=== PATIENT | female | born 1990 | race Caucasian/White ===

== ENCOUNTER 2016-09-26 06:01 | Inpatient (IN) | payer OTHER ==
[~2016-09-26] VITALS: Ht 160 cm; Wt 58.0 kg
[2016-09-26] VITALS (11 sets, daily range): BP systolic 122–147; BP diastolic 59–88
[2016-09-26] MEDS ORDERED: PRENTAB9 PO (07:37)
[2016-09-26] MEDS ORDERED: PENICILLIN G POTASSIUM IV 5 MU in D5W MINI-BAG PLUS 100 ML IV ONE (08:00)
[2016-09-26] MEDS ORDERED: PENICILLIN G POTASSIUM 5 MU VIAL As Ordered ONE (08:02)
[2016-09-26 08:04] LABS: MEAN CORPUSCULAR HEMOGLOBIN 30.8 pg (27.0-33.0); MEAN CORPUSCULAR HGB CONC 33.2 g/dl (32.0-36.5); MEAN CORPUSCULAR VOLUME 92.9 fl (80.0-96.0); RED CELL DISTRIBUTION WIDTH 13.1 % (11.5-14.5); WHITE BLOOD COUNT 15.6 K/mm3 (4.0-10.0)
[2016-09-26] MEDS ORDERED: OXYTOCIN 30 UNITS IN 0.9% NaCl 500ML IV BAG (J2590) As Ordered ONE (08:05)
[2016-09-26] MEDS ORDERED: LR 1,000 ML IV SCH (08:34)
[2016-09-26] MEDS ORDERED: OXYTOCIN DRIP 30 UNITS in APPROPRIATE DILUENT 1 EA IV SCH (08:38)
[2016-09-26] MEDS ORDERED: RHOGAM 300 MCG (1500 IU) INJ (J2790) IM SCH (08:45)
[2016-09-26] MEDS ORDERED: METOCLOPRAMIDE INJ 10MG/2ML VIAL (J2765) IV PRN (08:45)
[2016-09-26] MEDS ORDERED: IBUPROFEN 800 MG TAB PO PRN (08:45)
[2016-09-26] MEDS ORDERED: MEASLES,MUMPS,RUBELLA VACCINE INJ (MMR-II) (90707) SC SCH (08:45)
[2016-09-26] MEDS ORDERED: ACETAMINOPHEN TAB 650MG DOSE (2X325MG) PO PRN (08:45)
[2016-09-26] MEDS ORDERED: DIBUCAINE 1% OINTMENT 30GM TOP PRN (08:45)
[2016-09-26] MEDS: DOCUSATE SODIUM 100 MG CAP PO SCH ×2 (10:30→20:07)
[2016-09-26] MEDS: PRENATAL VITAMIN TAB PO SCH (10:31)
--- NOTE | 2016-09-26 10:37 | HPEPDOC ---
Obstetrical History & Physical General Date of Admission Sep 26, 2016 at 07:28 History of Present Illness Late entry, put in after delivery 25 at 38+0 with painful reg ctx's. Pos FM and slight VB. Large LOF right before I entered the room to meet the pt. Problem list: UTI/Kidney in , was on Keflex prophylaxis, prone to freq UTI's GCT 140, nl GTT EIF, too late for quad screen, declined MFM consultation Transfered to us at 21 wks Chief Complaint: Contractions, term, LOF, term Information Provided By: Patient, Other (outpt chart) Care Care: Good Care Dating Final EDC: Oct 10, 2016 Final EDC by: 1st trimester (US) Past Medical History Past Obstetrical History : Past Obstetrical History: [employer] MA[employer]GER [employer]ION History: No pertinent history (neg pap ) Past Medical History Medical History freq UTI's Surgical History: Other (none) Family History Significant Family History: No pertinent family hx Social History Marital Status: Family situation: Spouse/partner home Psychosocial History: No pertinent psych hx * Smoker: non-smoker Alcohol: denies Drugs: denies Abuse Violence Screening Have you been hit/kicked/slapp: No Have you been sexually assault: No Imunizations Tdap status: current Influenza Status: current Allergies Coded Allergies: No Known Allergies (Unverified , 09/26/16) Medications Scheduled Multivitamins/ ( 27-0.8 mg) 1 Tab Tab 1 TAB PO DAILY Physical Examination Physical Examination GENERAL: Alert and oriented times three. BREAST: . ABDOMEN: Gravid and non-tender to touch. FETUS: Is vertex (VTX) by sterile vaginal examination (SVE), fetus is vertex ( VTX) by Nasir. HEART RATE: Regular rate and rhythm. LUNGS: Clear to auscultation (CTA). EXTREMITIES: No edema. No clonus. Deep tendon reflexes (DTRs) + . Vital Signs/I&O Vital Signs Date Time Temp Pulse Resp B/P Pulse Ox O2 Delivery O2 Flow Rate FiO2 09/26/16 09:15 75 128/59 09/26/16 09:13 99.0 18 Laboratory Data 24H LABS Laboratory Tests 2 09/26/16 07:36: Serology Scanned Report Hepatitis B Testing 09/26/16 07:49: 09/26/16 10:15: Bedside Glucose (Misc Panel) 56L CBC/BMP Laboratory Tests 09/26/16 07:49 Red Blood Count 3.69 L, Mean Corpuscular Volume 92.9, Mean Corpuscular Hemoglobin 30.8, Mean Corpuscular Hemoglobin Concent 33.2, Red Cell Distribution Width 13.1 FSBS Laboratory Tests Test 09/26/16 10:15 Range/Units Bedside Glucose (Misc Panel) 56 70-105 MG/DL Urine Culture: No Growth ( when arrived at [facility]) Pertinent Laboratoy Data Blood Type: O+ RBC Antibody Screen: Negative HIV: Negative Hepatitis B: Negative Hepatitis C: Unknown Rapid Plasma Reagin: Nonreactive Rubella: Immune Varicella: Immune Chlamydia/Gonorrhea: Negative Group B Streptococcus: Negative Quad Screen Test: Declined Cystic Fibrosis: Declined Glucose Tolerance Test: 140 Anatomy Ultrasound Ultrasound Date: Jun 16, 2016 Placenta Location: Posterior Normal Anatomy: Yes (isolated EIF noted) Placenta Previa: No Estimated Weight (grams): 2800 Vaginal Examination Dilation: 10 cm Effacement: 80+% Station: +1, +2 Cervical Consistency: Soft Cervical Position: Anterior Presentation: Cephalic presentation Position: Vertex (occiput) Assessment Variability: Moderate Accelerations: Positive Decelerations: None Tocometer Contractions: Yes Frequency: regular Assessment/Plan Assessment 25 y/o checked by the RN prior to my check and found to be <4 cm dilated, my expectation was to discharge her however beforeI came into the room she SROM' d and my exam after HPI was C/C/+2/FORREST. She pushed very well and had an uncomplicatyed delivery, see del summary. Plan Admit and orient. Enterprise Engineer and consent. Group B Streptococcus neg Labs and intravenous (IV) per unit protocol. THUY BURNETTE MD Sep 26, 2016 10:37
--- NOTE | 2016-09-26 10:42 | DNPDOC ---
Delivery Note Delivery Note DATE OF DELIVERY: Sep 26, 2016 at 07:28 PREDELIVERY DIAGNOSIS: 38 0/7 weeks' gestation and labor. POST DELIVERY DIAGNOSIS: Delivered. PROCEDURE: Spontaneous vaginal delivery DIRECTOR ATHLETIC: Dr. Burnette ANESTHESIA: none ESTIMATED BLOOD LOSS: 200 FINDINGS: apgars 9/9, wt 2470 gm, 5 lb 7 oz DELIVERY SUMMARY: Pushed surprisingly well and del'd much quicker than anyone anticipated. No delay of the vtx, bilat compound hands but no delay of the ant/ post shoulder. Infant to mother's abd. Cord C/C by FOB. Cord blood. Plac intact with minimal traction and massgae. Pit running, fundus firm. Right labial lac and 1st degr per lac repaired in standard fashion with 3-0 vicryl, good cosmesis/hemostasis. THUY BURNETTE MD Sep 26, 2016 10:42
[2016-09-26] MEDS ORDERED: LIDOCAINE 1% MDV INJ 50 ML VIAL SC ONE (11:00)
[2016-09-27 06:02] VITALS: BP 130/62
--- NOTE | 2016-09-27 07:01 | IPNPDOC ---
Text Note Date of Service The patient was seen on 09/27/16. NOTE prog note on 12FEB at 805 States feeling well, no complaints. Bonding, nursing well, VB slowing, no signif pain, eating, ambulatory. VSS Ut at U-2, firm LE no CCE a/p: Doing well, d/c likely tomorrow Sessions MD BROWNE,Ty, I+O VSTy I+O Laboratory Tests 09/26/16 07:49 Red Blood Count 3.69 L, Mean Corpuscular Volume 92.9, Mean Corpuscular Hemoglobin 30.8, Mean Corpuscular Hemoglobin Concent 33.2, Red Cell Distribution Width 13.1 Vital Signs Date Time Temp Pulse Resp B/P Pulse Ox O2 Delivery O2 Flow Rate FiO2 09/27/16 06:02 98.2 87 16 130/62 I&O- Last 24 Hours up to 6 AM 09/27/16 06:00 Output Total 900 ml Balance -900 ml SESSIONS,THUY Mayer MD Sep 27, 2016 07:01
[2016-09-27] MEDS: PRENATAL VITAMIN TAB PO SCH (09:15)
[2016-09-27] MEDS: DOCUSATE SODIUM 100 MG CAP PO SCH ×2 (09:15→20:00)
[2016-09-27 18:18] VITALS: BP 129/82
[2016-09-28 06:17] VITALS: BP 121/59
[2016-09-28] MEDS: PRENATAL VITAMIN TAB PO SCH (08:03)
[2016-09-28] MEDS: DOCUSATE SODIUM 100 MG CAP PO SCH (08:03)
[2016-09-28] MEDS ORDERED: ACET50TA PO (10:34)
[2016-09-28] MEDS ORDERED: IBUP-1114 PO (10:35)
== END 2016-09-28 11:00 | disposition home or self-care (01) | DRG 775 ==
LOC: M LDO 06:01 → M LDI 07:28 → M OBS 13:38
PROVIDERS: ADMIT Obstetrics & Gynecology; ATTEND Obstetrics & Gynecology
PROC: 10E0XZZ Delivery of Products of Conception, External Approach (ICD-10-PCS; principal; 2016-09-26)
PROC: 0HQ9XZZ Repair Perineum Skin, External Approach (ICD-10-PCS; 2016-09-26)
DX: O62.3 Precipitate labor (principal); Z37.0 Single live birth; Z3A.38 38 weeks gestation of pregnancy; O70.0 First degree perineal laceration during delivery

== ENCOUNTER → 2017-04-03 | Outpatient (REF) | payer OTHER ==
[~2017-04-03] MED LIST: ACET50TA PO; IBUP-1114 PO; PRENTAB9 PO
== END ==
LOC: M WUC 11:45
PROVIDERS: ATTEND Physician Assistant
DX: R30.0 Dysuria (principal)

== ENCOUNTER → 2017-10-27 | Outpatient (CLI) | payer OTHER | LOC: M WUC 13:24 | DX: S67.21XA Crushing injury of right hand, initial encounter (principal); W54.0XXA Bitten by dog, initial encounter; Y92.89 Other specified places as the place of occurrence of the external cause; Y99.9 Unspecified external cause status; Y93.89 Activity, other specified ==